=== PATIENT | female | born 1995 | race African-American/Black ===

== ENCOUNTER 2021-11-17 17:41 | Day surgery (SDC) | payer OTHER ==
[2021-11-17 18:29] VITALS: BMI 24.2
[2021-11-17] MEDS ORDERED: hydrALAZINE 20 MG/ML VIAL SLOW IVP PRN (19:04)
[2021-11-17] MEDS ORDERED: Lactated Ringer's 1,000 ML IV SCH (19:15)
[2021-11-17 21:20] LABS: #Monocytes 0.4 10x3/uL (0.0-1.1); #Neutrophils 8.4 10x3/uL (1.5-8.4); %Basophils 0.2 % (0.0-2.0); %Eosinophils 0.4 % (0.0-6.0); %Lymphocytes 14.3 % (18.0-47.0); %Monocytes 4.2 % (0.0-10.0); %Neutrophils 80.4 % (40.0-75.0); Hemoglobin 9.6 g/dL (12.0-15.5); Mean Corpuscular Hemoglobin 24.4 pg (27.0-33.0); Mean Corpuscular Volume 78.9 fl (81.6-98.3); Platelet Count 201 10x3/uL (150-450); RBC Distribution Width 13.9 % (11.5-14.5); Red Blood Cell (RBC) Count 3.93 10x6/uL (3.90-5.03); White Blood Cell (WBC) Count 10.4 10x3/uL (3.5-10.5)
[2021-11-17 21:34] LABS: ALT (SGPT) 6 U/L (8-55); AST (SGOT) 15 U/L (5-34); Albumin 3.3 g/dL (3.5-5.0); Alkaline Phosphatase 150 U/L (40-110); Anion Gap 14 mmol/L (10-20); BUN (Urea Nitrogen) 6 mg/dL (7.0-18.7); Bilirubin, Total 0.3 mg/dL (0.2-1.2); Calc. Creatinine Clearance 138 mL/min (70-130); Calcium 8.6 mg/dL (7.8-10.44); Carbon Dioxide 20 mmol/L (22-29); Chloride 106 mmol/L (98-107); Globulin 3.4 g/dL (2.4-3.5); Glucose 98 mg/dL (70-105); Potassium 3.8 mmol/L (3.5-5.1); Protein, Total 6.7 g/dL (6.0-8.3); Sodium 136 mmol/L (136-145)
[2021-11-17 21:43] LABS: Creatinine, Urine 68.38 mg/dL (47-110); Protein, Urine Random Quant Less than 10 mg/dL (1-14)
[2021-11-17 23:47] LABS: SARS-CoV-2 NAA Rapid Test Not Detected (NotDetected)
== END 2021-11-17 22:40 | disposition home or self-care (01) ==
LOC: CSHLD/OP 17:41
PROVIDERS: ATTEND Student in an Organized Health Care Education/Training Program
DX: O99.891 Other specified diseases and conditions complicating pregnancy (principal); R55 Syncope and collapse; H53.8 Other visual disturbances; R51.9 Headache, unspecified; O99.013 Anemia complicating pregnancy, third trimester; O99.283 Endocrine, nutritional and metabolic diseases complicating pregnancy, third trimester; E03.9 Hypothyroidism, unspecified; O34.211 Maternal care for low transverse scar from previous cesarean delivery; Z3A.36 36 weeks gestation of pregnancy; Z20.822 Contact with and (suspected) exposure to COVID-19; Z87.891 Personal history of nicotine dependence; Z86.19 Personal history of other infectious and parasitic diseases; Z79.899 Other long term (current) drug therapy
CPT/HCPCS: 80053; 82570; 84156; 85025; 96360; 99283; U0002

== ENCOUNTER 2021-11-20 12:07 | Day surgery (SDC) | payer OTHER ==
[2021-11-20] MEDS ORDERED: hydrALAZINE 20 MG/ML VIAL SLOW IVP PRN (12:39)
[2021-11-20] MEDS ORDERED: Acetaminophen 325 MG TAB PO PRN (13:36)
[2021-11-20] MEDS ORDERED: Ondansetron PF 4 MG/2 ML Vial IVP PRN (13:36)
[2021-11-20] MEDS ORDERED: Lactated Ringer's 1,000 ML IV SCH (13:45)
[2021-11-20 15:00] LABS: Hemoglobin 10.5 g/dL (12.0-15.5); Mean Corpuscular HGB CONC 31.6 g/dL (32.0-36.0); Mean Corpuscular Hemoglobin 24.7 pg (27.0-33.0); Mean Corpuscular Volume 78.1 fl (81.6-98.3); Mean Platelet Volume 10.3 fl (7.4-10.4); Platelet Count 235 10x3/uL (150-450); RBC Distribution Width 14.3 % (11.5-14.5); Red Blood Cell (RBC) Count 4.25 10x6/uL (3.90-5.03); White Blood Cell (WBC) Count 14.1 10x3/uL (3.5-10.5)
[2021-11-20 15:32] LABS: HBSAg Index 0.15 S/CO (0-0.99); HIV (1/2) Antibody/Antigen Non-Reactive (NonReactive); Hep B Surf Ag Non-Reactive S/CO (NonReactive); Syphilis Antibody Nonreactive (Nonreactive); Syphilis Antibody Index 0.05 S/CO (<1.00 Non-Reactive)
== END 2021-11-20 18:10 | disposition home or self-care (01) ==
LOC: CSHLD/OP 12:07
PROVIDERS: ATTEND Family Medicine
DX: O47.03 False labor before 37 completed weeks of gestation, third trimester (principal); O98.313 Other infections with a predominantly sexual mode of transmission complicating pregnancy, third trimester; A59.01 Trichomonal vulvovaginitis; O34.211 Maternal care for low transverse scar from previous cesarean delivery; O09.33 Supervision of pregnancy with insufficient antenatal care, third trimester; Z3A.36 36 weeks gestation of pregnancy; Z87.891 Personal history of nicotine dependence
CPT/HCPCS: 36415; 85027; 86780; 86850; 86900; 86901; 87081; 87340; 87389; 87480; 87510; 87660; 90384; 96372; 99283; J2405

== ENCOUNTER 2021-12-05 14:55 | Inpatient (IN) | payer OTHER ==
[2021-12-05] MEDS ORDERED: Famotidine/PF 20 mg/2ml Vial SLOW IVP PRN (15:38)
[2021-12-05] MEDS ORDERED: Bicitra 30 ML UDCUP PO PRN (15:38)
[2021-12-05] MEDS ORDERED: Ondansetron PF 4 MG/2 ML Vial IVP PRN ×3 (15:38→22:47)
[2021-12-05] MEDS ORDERED: Promethazine HCl 25 MG/ML VIAL IM PRN ×2 (15:38→19:45)
[2021-12-05] MEDS ORDERED: hydrALAZINE 20 MG/ML VIAL SLOW IVP PRN ×2 (15:38→22:47)
[2021-12-05 15:44] VITALS: BMI 23.3
[2021-12-05] MEDS ORDERED: Lactated Ringer's 1,000 ML IV SCH (15:45)
[2021-12-05] MEDS ORDERED: ceFAZolin 2 GM/Dextrose 50 ML 2 GM in Premix Bag 1 BAG IVPB SCH (15:45)
[2021-12-05 16:18] LABS: Mean Corpuscular HGB CONC 29.8 g/dL (32.0-36.0); Mean Corpuscular Hemoglobin 23.4 pg (27.0-33.0); Mean Corpuscular Volume 78.7 fl (81.6-98.3); Mean Platelet Volume 9.6 fl (7.4-10.4); Platelet Count 336 10x3/uL (150-450); RBC Distribution Width 14.6 % (11.5-14.5); Red Blood Cell (RBC) Count 4.27 10x6/uL (3.90-5.03); White Blood Cell (WBC) Count 10.2 10x3/uL (3.5-10.5)
[2021-12-05 16:49] LABS: Hep B Surf Ag Non-Reactive S/CO (NonReactive); Syphilis Antibody Nonreactive (Nonreactive); Syphilis Antibody Index 0.06 S/CO (<1.00 Non-Reactive)
[2021-12-05] MEDS ORDERED: Magnesium Sulfate 20 gm/500 ml 0 GM/0 ML BAG ONE (16:53)
[2021-12-05 17:03] LABS: HBSAg Index 0.16 S/CO (0-0.99)
[2021-12-05] MEDS ORDERED: Morphine PF 10 MG/10 ML VIAL ONE (17:15)
[2021-12-05] MEDS ORDERED: Fentanyl 100 MCG/2 ML VIAL ONE (17:15)
[2021-12-05] MEDS ORDERED: ePHEDrine Sulfate 50 MG/10 ML VIAL ONE ×2 (17:16→18:02)
[2021-12-05] MEDS ORDERED: Ketorolac Tromethamine 30 MG/ML VIAL ONE (17:20)
[2021-12-05] MEDS ORDERED: Oxytocin 10 UNITS/ML VIAL ONE ×2 (17:20→18:17)
[2021-12-05] MEDS ORDERED: Ondansetron PF 4 MG/2 ML Vial ONE (17:20)
[2021-12-05 17:34] LABS: HIV (1/2) Antibody/Antigen Non-Reactive (NonReactive)
[2021-12-05] MEDS ORDERED: Dexamethasone 4 mg/ml Vial ONE (18:42)
[2021-12-05] MEDS ORDERED: diphenhydrAMINE 50 MG/ML VIAL IVP PRN (19:45)
[2021-12-05] MEDS ORDERED: Naloxone HCl 0.4 mg/ml Vial IVP PRN ×2 (19:45)
[2021-12-05] MEDS ORDERED: Fentanyl 100 MCG/2 ML VIAL SLOW IVP PRN (19:45)
[2021-12-05] MEDS ORDERED: Hydrocerin (Eucerin) Cream 120 gm Jar TOP PRN (19:45)
[2021-12-05] MEDS ORDERED: Meperidine HCl/PF 25 MG/ML VIAL SLOW IVP PRN (19:45)
[2021-12-05] MEDS ORDERED: Ondansetron HCl/PF 4 MG/2 ML Vial IVP PRN (19:45)
[2021-12-05] MEDS ORDERED: Ketorolac Tromethamine 30 MG/ML VIAL IVP PRN (19:45)
[2021-12-05] MEDS ORDERED: Promethazine HCl 25 MG SUPP PR PRN (19:45)
[2021-12-05] MEDS ORDERED: Naloxone HCl 0.4 mg/ml Vial IV PRN (19:45)
[2021-12-05] MEDS ORDERED: Communication Order-Pharmacy FS SCH (19:45)
[2021-12-05 22:14] LABS: SARS-CoV-2 NAA Rapid Test Not Detected (NotDetected)
[2021-12-05] MEDS ORDERED: diphenhydrAMINE 25 MG CAP PO PRN (22:47)
[2021-12-05] MEDS ORDERED: Boostrix 0.5 ML (Tdap) VIAL IM ONE (22:47)
[2021-12-05] MEDS ORDERED: Lanolin Ointment 7 GM TUBE TOP PRN (22:47)
[2021-12-05] MEDS ORDERED: Misoprostol 200 MCG TAB PR PRN (22:47)
[2021-12-05] MEDS ORDERED: NS w/ Oxytocin 30 units 500 ML IV SCH (22:47)
[2021-12-05] MEDS ORDERED: Acetaminophen 325 MG TAB PO PRN (22:47)
[2021-12-05] MEDS: Ferrous Sulfate 325 MG TAB PO SCH (23:09)
[2021-12-05] MEDS: Docusate 100 MG CAP PO SCH (23:09)
[2021-12-06 05:56] LABS: Mean Corpuscular HGB CONC 30.1 g/dL (32.0-36.0); Mean Corpuscular Hemoglobin 23.8 pg (27.0-33.0); Mean Corpuscular Volume 78.9 fl (81.6-98.3); Mean Platelet Volume 9.6 fl (7.4-10.4); Platelet Count 301 10x3/uL (150-450); RBC Distribution Width 14.5 % (11.5-14.5); Red Blood Cell (RBC) Count 4.21 10x6/uL (3.90-5.03)
[2021-12-06 06:49] LABS: Thyroid Stimulating Hormone 0.515 uIU/mL (0.35-4.94)
[2021-12-06 07:20] LABS: Free T4 (Free Thyroxine) 1.02 ng/dL (0.70-1.48)
[2021-12-06] MEDS ORDERED: HYDROcodone/Acetaminophen 5/325 mg Tablet PO PRN (07:45)
[2021-12-06] MEDS ORDERED: Ibuprofen 800 MG TAB ONE (08:00)
[2021-12-06] MEDS: Docusate 100 MG CAP PO SCH ×2 (08:22→21:12)
[2021-12-06] MEDS: HYDROcodone/Acetaminophen 5/325 mg Tablet PO PRN (08:22)
[2021-12-06] MEDS: Prenatal Vitamin 1 TAB PO SCH (08:22)
[2021-12-06] MEDS: Ferrous Sulfate 325 MG TAB PO SCH ×2 (11:03→21:13)
[2021-12-06 13:16] LABS: Amphetamine Not Detected (NotDetected); Barbiturates Screen Not Detected (NotDetected); Benzodiazepine Screen Not Detected (NotDetected); Cocaine Metabolite Screen Not Detected (NotDetected); Methadone Not Detected (NotDetected); Methamphetamine Not Detected (NotDetected); Opiate Screen Detected (NotDetected); Oxycodone Screen Not Detected (NotDetected); Phencyclidine (PCP) Not Detected (NotDetected); THC/Cannabinoid Screen Detected (NotDetected); Tricyclic Screen Not Detected (NotDetected)
[2021-12-06] MEDS: Ibuprofen 800 MG TAB PO SCH ×2 (13:30→21:12)
[2021-12-07] MEDS: Ibuprofen 800 MG TAB PO SCH ×3 (05:32→21:48)
[2021-12-07] MEDS: Ferrous Sulfate 325 MG TAB PO SCH ×2 (09:23→21:48)
[2021-12-07] MEDS: Prenatal Vitamin 1 TAB PO SCH (09:26)
[2021-12-07] MEDS: Docusate 100 MG CAP PO SCH ×2 (09:26→21:48)
[2021-12-07] MEDS: HYDROcodone/Acetaminophen 5/325 mg Tablet PO PRN (13:02)
[2021-12-08] MEDS: Ibuprofen 800 MG TAB PO SCH ×2 (05:16→14:26)
[2021-12-08] MEDS: Ferrous Sulfate 325 MG TAB PO SCH (07:21)
[2021-12-08] MEDS: HYDROcodone/Acetaminophen 5/325 mg Tablet PO PRN (07:28)
[2021-12-08] MEDS: Prenatal Vitamin 1 TAB PO SCH (08:23)
[2021-12-08] MEDS: Docusate 100 MG CAP PO SCH (08:23)
[2021-12-08 10:32] LABS: #Monocytes 0.4 10x3/uL (0.0-1.1); %Basophils 0.2 % (0.0-2.0); %Eosinophils 0.1 % (0.0-6.0); %Lymphocytes 12.3 % (18.0-47.0); %Monocytes 3.9 % (0.0-10.0); %Neutrophils 83.2 % (40.0-75.0); Hemoglobin 10.1 g/dL (12.0-15.5); Mean Corpuscular HGB CONC 30.9 g/dL (32.0-36.0); Mean Corpuscular Hemoglobin 23.8 pg (27.0-33.0); Mean Corpuscular Volume 77.1 fl (81.6-98.3); Mean Platelet Volume 9.1 fl (7.4-10.4); Platelet Count 283 10x3/uL (150-450); RBC Distribution Width 14.7 % (11.5-14.5); Red Blood Cell (RBC) Count 4.24 10x6/uL (3.90-5.03); White Blood Cell (WBC) Count 9.6 10x3/uL (3.5-10.5)
[2021-12-08 10:39] LABS: ALT (SGPT) 32 U/L (8-55); AST (SGOT) 21 U/L (5-34); Albumin 3.4 g/dL (3.5-5.0); Alkaline Phosphatase 134 U/L (40-110); Anion Gap 13 mmol/L (10-20); BUN (Urea Nitrogen) 9 mg/dL (7.0-18.7); Bilirubin, Total 0.5 mg/dL (0.2-1.2); Calc. Creatinine Clearance 120 mL/min (70-130); Calcium 9.2 mg/dL (7.8-10.44); Carbon Dioxide 23 mmol/L (22-29); Chloride 106 mmol/L (98-107); Globulin 3.7 g/dL (2.4-3.5); Glucose 83 mg/dL (70-105); Potassium 3.8 mmol/L (3.5-5.1); Protein, Total 7.1 g/dL (6.0-8.3); Sodium 138 mmol/L (136-145)
[2021-12-08 11:00] LABS: Creatinine, Urine 175.51 mg/dL (47-110)
[2021-12-08 20:31] VITALS: BP 120/74; TEMP 98.3
== END 2021-12-08 22:11 | disposition home or self-care (01) | DRG 787 ==
LOC: CSHLD 14:55 → CSHPP 21:40
PROVIDERS: ADMIT Family Medicine; ATTEND Family Medicine
PROC: 10D00Z1 Extraction of Products of Conception, Low, Open Approach (ICD-10-PCS; principal; 2021-12-05)
DX: O34.211 Maternal care for low transverse scar from previous cesarean delivery (principal); O10.02 Pre-existing essential hypertension complicating childbirth; O99.324 Drug use complicating childbirth; Z20.822 Contact with and (suspected) exposure to COVID-19; Z3A.39 39 weeks gestation of pregnancy; Z37.0 Single live birth; O99.824 Streptococcus B carrier state complicating childbirth; O99.284 Endocrine, nutritional and metabolic diseases complicating childbirth; E03.9 Hypothyroidism, unspecified; O99.344 Other mental disorders complicating childbirth; F41.9 Anxiety disorder, unspecified; F32.A Depression, unspecified; O99.02 Anemia complicating childbirth; D64.9 Anemia, unspecified; F12.90 Cannabis use, unspecified, uncomplicated; O99.334 Smoking (tobacco) complicating childbirth; F17.210 Nicotine dependence, cigarettes, uncomplicated
CPT/HCPCS: 36415; 80053; 80306; 82570; 84156; 84439; 84443; 84560; 85025; 85027; 85461; 86780; 86850; 86870; 86900; 86901; 86922; 87340; 87389; 90384; 96372; J0690; J1100; J1200; J1885; J2274; J2405; J2590; J3010; S0028; U0002

== ENCOUNTER 2024-04-15 17:00 | Inpatient (IN) | payer MEDICAID, OTHER ==
[2024-04-15 13:06] LABS: Hematocrit 28.1 % (34.9-44.5); Hemoglobin 8.9 g/dL (12.0-15.5); Platelet Count 239 10x3/uL (150-450)
[2024-04-15 13:42] LABS: HBsAg Index 0.17 S/CO (0-0.99); Hep B Surf Ag Non-Reactive S/CO (NonReactive)
[2024-04-15 13:43] LABS: Syphilis Antibody Nonreactive (Nonreactive); Syphilis Antibody Index 0.05 S/CO (<1.00 Non-Reactive)
[2024-04-16] MEDS ORDERED: Bicitra 30 ML UDCUP PO PRN (11:00)
[2024-04-16] MEDS ORDERED: Diphenoxylate HCl/Atropine Tablet PO PRN (11:00)
[2024-04-16] MEDS ORDERED: Ondansetron PF 4 MG/2 ML Vial IVP PRN ×3 (11:00→13:24)
[2024-04-16] MEDS ORDERED: Methylergonovine 0.2 MG/ML VIAL IM PRN (11:00)
[2024-04-16] MEDS ORDERED: Misoprostol 200 MCG TAB PR PRN (11:00)
[2024-04-16] MEDS ORDERED: Promethazine HCl 25 MG/ML VIAL IM PRN ×2 (11:00→13:24)
[2024-04-16] MEDS ORDERED: CEFAZOLIN 2 GM in Sodium Chloride 0.9% 100 ML IVPB SCH (11:00)
[2024-04-16] MEDS ORDERED: Tranexamic Acid 1,000 MG/10 ML VIAL IVP PRN (11:00)
[2024-04-16] MEDS ORDERED: Carboprost 250 MCG/ML AMP IM PRN (11:00)
[2024-04-16] MEDS ORDERED: Oxytocin 30 units/NS 500 ML 500 ML IV SCH (11:00)
[2024-04-16] MEDS ORDERED: hydrALAZINE 20 MG/ML VIAL SLOW IVP PRN (11:00)
[2024-04-16] MEDS: Lactated Ringer's 1,000 ML IV SCH (11:10)
[2024-04-16] MEDS: Famotidine/PF 20 mg/2ml Vial SLOW IVP PRN (11:44)
[2024-04-16 13:17] VITALS: BMI 22.8
[2024-04-16] MEDS ORDERED: fentaNYL 50 mcg/mL 1 mL Vial SLOW IVP PRN (13:24)
[2024-04-16] MEDS ORDERED: Morphine 4 MG/ML VIAL SLOW IVP PRN (13:24)
[2024-04-16] MEDS ORDERED: Naloxone HCl 0.4 mg/ml Vial IVP PRN (13:24)
[2024-04-16] MEDS ORDERED: Communication Order-Pharmacy FS SCH (13:30)
[2024-04-16] MEDS: Moisturizing Cream (Eucerin) 113 GM JAR TOP PRN (14:23)
[2024-04-16] MEDS: Naloxone HCl 0.4 mg/ml Vial IVP PRN (14:24)
[2024-04-16] MEDS: diphenhydrAMINE 50 MG/ML VIAL IVP PRN (14:24)
[2024-04-16] MEDS: Ketorolac Tromethamine 30 MG (1 mL) VIAL IVP SCH (14:37)
[2024-04-16] MEDS: Meperidine HCl/PF 25 MG (1 mL) VIAL SLOW IVP PRN (15:17)
[2024-04-16] MEDS: Ketorolac Tromethamine 30 MG (1 mL) VIAL IVP PRN (20:29)
[2024-04-17] MEDS ORDERED: hydrALAZINE 20 MG/ML VIAL SLOW IVP PRN (04:30)
[2024-04-17] MEDS ORDERED: Boostrix 0.5 ML (Tdap) VIAL (>/=7 yrs of age) IM ONE (04:30)
[2024-04-17 06:55] LABS: #Basophils 0.02 10x3/uL (0.0-0.2); #Eosinphils 0.06 10x3/uL (0.0-0.5); #Monocytes 0.92 10x3/uL (0.0-1.1); #Neutrophils 10.49 10x3/uL (1.5-8.4); %Basophils 0.1 % (0.0-2.0); %Eosinophils 0.4 % (0.0-6.0); %Lymphocytes 14.2 % (18.0-47.0); %Monocytes 6.8 % (0.0-10.0); %Neutrophils 77.8 % (40.0-75.0); Hematocrit 21.8 % (34.9-44.5); Mean Corpuscular HGB CONC 32.1 g/dL (32.0-36.0); Mean Corpuscular Hemoglobin 24.4 pg (27.0-33.0); Mean Platelet Volume 10.2 fL (7.4-10.4); Platelet Count 197 10x3/uL (150-450); RBC Distribution Width 15.1 % (11.5-14.5); Red Blood Cell (RBC) Count 2.87 10x6/uL (3.90-5.03); White Blood Cell (WBC) Count 13.5 10x3/uL (3.5-10.5)
[2024-04-17] MEDS: Erythromycin Base 0.5% Oint 1 GM TUBE ONE (07:32)
[2024-04-17] MEDS: Morphine PF 10 MG/10 ML VIAL ONE (07:32)
[2024-04-17] MEDS: Phytonadione Neonatal 1 MG/0.5 ML AMP ONE (07:32)
[2024-04-17] MEDS: Dexamethasone 4 mg/ml Vial ONE (07:32)
[2024-04-17] MEDS: Oxytocin 10 UNITS/ML VIAL ONE ×2 (07:33)
[2024-04-17] MEDS: PHENYLEPHRINE-NS 100 MCG/ML 10 ML SYRINGE ONE (07:33)
[2024-04-17] MEDS: Ondansetron PF 4 MG/2 ML Vial ONE (07:33)
[2024-04-17] MEDS: Naloxone HCl 0.4 mg/ml Vial IV PRN (09:36)
[2024-04-17] MEDS: HYDROcodone/Acetaminophen 5/325 mg Tablet PO PRN ×2 (09:37→21:40)
[2024-04-17] MEDS: diphenhydrAMINE 25 MG CAP PO PRN (09:37)
[2024-04-18] MEDS: Ferrous Gluconate 324 MG TAB PO SCH (08:30)
[2024-04-18] MEDS ORDERED: Phenazopyridine HCl 95 MG TAB PO SCH (09:00)
[2024-04-18 09:22] LABS: Bilirubin Neg (Negative); Blood, Urine 25 (Negative); Clarity Clear (Clear); Glucose, Urine (Dipstick) Normal (Negative); Ketone, Urine Negative (Negative); Leukocyte Negative (Negative); Nitrite Negative (Negative); Protein, Urine (Dipstick) Negative (Neg-Trace); Specific Gravity, Urine 1.005 (1.005-1.030); Urobilinogen Normal mg/dL (Less than 2)
[2024-04-18 09:33] LABS: CAUTI Indications for Culture Pelvic or flank pain; RBC/HPF 0-3 HPF (0-3); Squamous Epithelial 0-3 HPF (0-3); WBC/HPF 0-3 HPF (0-3)
[2024-04-18 09:34] LABS: Bacteria/HPF None Seen HPF (None Seen); Urine Culture Reflex No No
[2024-04-18] MEDS ORDERED: Polyethylene Glycol 3350 17 GM Packet PO PRN (17:25)
[2024-04-18] MEDS: Docusate 100 MG CAP PO PRN (17:52)
[2024-04-19 05:46] LABS: Hematocrit 23.4 % (34.9-44.5); Hemoglobin 7.5 g/dL (12.0-15.5); Mean Corpuscular HGB CONC 32.1 g/dL (32.0-36.0); Mean Corpuscular Volume 74.8 fL (81.6-98.3); Mean Platelet Volume 10.6 fL (7.4-10.4); Platelet Count 238 10x3/uL (150-450); RBC Distribution Width 15.1 % (11.5-14.5); Red Blood Cell (RBC) Count 3.13 10x6/uL (3.90-5.03); White Blood Cell (WBC) Count 18.7 10x3/uL (3.5-10.5)
[2024-04-19] MEDS: Acetaminophen 325 MG TAB PO SCH (06:23)
[2024-04-19] MEDS: Ibuprofen 800 MG TAB PO SCH (06:23)
[2024-04-19] MEDS: Polyethylene Glycol 3350 17 GM Packet PO SCH (08:17)
[2024-04-19] MEDS: Docusate 100 MG CAP PO SCH (08:19)
[2024-04-19 08:52] VITALS: BP 124/74; TEMP 97.7
[2024-04-19] MEDS ORDERED: Polyethylene Glycol 3350 17 GM Packet PO SCH (09:00)
== END 2024-04-19 13:10 | disposition home or self-care (01) | DRG 787 ==
LOC: CSHLD 04-16 10:30 → CSHPP 04-16 15:44
PROVIDERS: ADMIT Family Medicine; ATTEND Family Medicine
PROC: 10D00Z1 Extraction of Products of Conception, Low, Open Approach (ICD-10-PCS; principal; 2024-04-16)
DX: O34.211 Maternal care for low transverse scar from previous cesarean delivery (principal); D62 Acute posthemorrhagic anemia; O36.5930 Maternal care for other known or suspected poor fetal growth, third trimester, not applicable or unspecified; Z3A.37 37 weeks gestation of pregnancy; Z37.0 Single live birth; O99.02 Anemia complicating childbirth; O90.89 Other complications of the puerperium, not elsewhere classified; R33.8 Other retention of urine
CPT/HCPCS: 51702; 81001; 85014; 85018; 85025; 85027; 85049; 86780; 86850; 86870; 86900; 86901; 87340; C1889; J1100; J1200; J1885; J2175; J2274; J2310; J2405; J2590; J7120; S0028

== ENCOUNTER 2025-10-13 17:04 | Day surgery (SDC) | payer MEDICAID, SELFPAY ==
[2025-10-13 17:23] VITALS: BMI 26.6
[2025-10-13] MEDS: Acetaminophen 500 MG TAB PO SCH (18:49)
== END 2025-10-13 18:58 | disposition home or self-care (01) ==
LOC: CSHLD/OP 17:04
PROVIDERS: ATTEND Family Medicine
DX: O99.891 Other specified diseases and conditions complicating pregnancy (principal); R03.0 Elevated blood-pressure reading, without diagnosis of hypertension; R10.20 Pelvic and perineal pain unspecified side; O09.43 Supervision of pregnancy with grand multiparity, third trimester; O34.211 Maternal care for low transverse scar from previous cesarean delivery; O99.333 Smoking (tobacco) complicating pregnancy, third trimester; F17.200 Nicotine dependence, unspecified, uncomplicated; O99.323 Drug use complicating pregnancy, third trimester; F12.90 Cannabis use, unspecified, uncomplicated; Z3A.29 29 weeks gestation of pregnancy; Z67.41 Type O blood, Rh negative
CPT/HCPCS: 99283; Q0162